=== PATIENT | male | born 1960 | race Caucasian/White ===

== ENCOUNTER 2016-06-28 10:24 | Day surgery (SDC) | payer BC, OTHER ==
[~2016-06-28 10:24] MED LIST: Lactated Ringers 1,000 ML IV SCH
[2016-06-28] MEDS ORDERED: Propofol 200 MG/20 ML SDV ONE (12:58)
[2016-06-28] MEDS ORDERED: fentaNYL 100 MCG/2 ML SDV ONE (12:58)
[2016-06-28 14:57] VITALS: BP 121/68
--- NOTE | 2016-06-28 22:05 | OR ---
PREOPERATIVE DIAGNOSIS: History of polyps. POSTOPERATIVE DIAGNOSIS: Normal colonoscopic exam. Perianal rash. PROCEDURE PROPOSED: Total flexible colonoscopy. PROCEDURE DONE: Total flexible colonoscopy. INDICATION: This is a 56-year-old gentleman who has a history of having a polyp removed about 5-6 years ago and he was told at that time he could wait 10 years, but then he got a letter to come in 5 years. He is not sure what type of polyp he had. He denies any symptomatology. He does have a perianal rash. TECHNIQUE: The patient was brought to the endoscopy suite and placed in left lateral decubitus position. 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 The flexible video colonoscope was then passed transanally and under visualization advanced to the cecum. Examination revealed a normal ascending, transverse, descending sigmoid and rectal colon. There was no evidence of any polyps or colitis. He did have 1 or 2 diverticular orifices noted, and the scope was then withdrawn. He tolerated the procedure well. I did have a perianal rash which I have actually seen in the past and he has treated this with cortisone ointment as well as nystatin ointment with some improvement, but it seems to be recurring. FINAL IMPRESSION: 1. Normal colonoscopic exam. 2. Perianal rash. PLAN: I have told he could wait 10 years before he needs a repeat colonoscopy, beginning he was told that in the first place. I also feel he should be seen by Dr. Zamora, the relay telegrapher, regarding his perianal rash. SCM: 06/28/2016 13:57:32 MODL: 06/28/2016 21:50:04 /[id number]
== END 2016-06-28 14:30 | disposition home or self-care (01) ==
LOC: VM.SDS 10:24
PROVIDERS: ATTEND Surgery
DX: Z12.11 Encounter for screening for malignant neoplasm of colon (principal); K57.30 Diverticulosis of large intestine without perforation or abscess without bleeding; L29.0 Pruritus ani
CPT/HCPCS: 45378; J2704; J3010; J7120